=== PATIENT | female | born 1980 | race Caucasian/White ===

== ENCOUNTER 2020-03-09 06:53 | Emergency (ER) | payer SELFPAY ==
[2020-03-09 07:00] VITALS: BP 162/82; PULSE 94; RESP 18; TEMP 36.3; O2SAT 99
--- NOTE | 2020-03-09 07:17 | ED.DENTAL ---
HPI - Dental/Oral General Chief complaint: Dental/Oral Stated complaint: left side face is swollen, tooth problem Time Seen by Provider: 03/09/20 07:02 Source: patient Mode of arrival: Ambulatory Limitations: no limitations History of Present Illness HPI Narrative: The patient developed left facial pain and swelling last night. She has a history of multiple caries. She has had multiple extractions, she has crowns. She developed pain and swelling around tooth 19 which has a crown. She has facial swelling with severe pain. She has no difficulty swelling, or difficulty with jaw motion. She has no chest pain, or dyspnea. She denies fever or chills. Related Data Home Medications Medication Instructions Recorded Confirmed [TYLENOL] PRN #0 03/10/11 bupropion HCl [Wellbutrin SR] 150 mg PO BID #0 03/10/11 escitalopram oxalate [Lexapro] 20 mg PO Q DAY #0 03/10/11 Previous Rx's Medication Instructions Recorded clindamycin HCl [Cleocin HCl] 300 mg PO Q8H 10 Days #30 cap 03/09/20 ondansetron 4 mg PO Q4H PRN #10 tab 03/09/20 tramadol 50 mg PO Q6-8H PRN #14 tab 03/09/20 Allergies Allergy/AdvReac Type Severity Reaction Status Date / Time Sulfa (Sulfonamide Allergy Unknown Rash Verified 03/09/20 07:25 Antibiotics) Review of Systems Constitutional Constitutional: Denies chills and Denies fever(s) Eyes Comments: No complaints ENT Comments: Facial swelling. Dental pain. See HPI. Cardiovascular Cardiovascular: Denies chest pain and Denies dyspnea Respiratory Respiratory: Denies dyspnea Patient History Social History Smoking Status: Current every day smoker Exam Initial Vital Signs Initial Vital Signs: Vital Signs Temperature 97.4 F L 03/09/20 07:00 Pulse Rate 94 H 03/09/20 07:00 Respiratory Rate 18 03/09/20 07:00 Blood Pressure 162/82 H 03/09/20 07:00 Pulse Oximetry 99 03/09/20 07:00 Const General: cooperative and well developed Nutritional Appearance: well nourished [facility] Head: other (Swelling to the left mandible with tenderness. No erythema.) Teeth and gingiva: other (Abscess adjacent to tooth 19. With induration and tenderness) Neck Neck: No lymphadenopathy Resp Effort & Inspection: normal respiratory effort and able to speak in complete sentences Auscultation: clear to auscultation bilaterally, no rales, no rhonchi and no wheezes Cardio Rate: regular rate Rhythm: regular rhythm Heart Sounds: no click, no gallops, no murmurs and no rubs Pulses: normal peripheral pulses Course Course Course Narrative: The patient has received IV Toradol, Decadron and clindamycin. She required Zofran for nausea. The facial swelling and pain is improved prior to departure. She is advised follow-up with a dentist, consider seen a local oral surgeon if symptoms escalate. Orders Ordered: Discontinued Medications Dexamethasone 20 mg/ Sodium (Chloride) 52 mls @ 208 mls/hr IV NOW ONE Stop: 03/09/20 07:16 Last Infusion: 03/09/20 08:20 Dose: 0 mls/hr Documented by: Admin: 03/09/20 07:45 Dose: 208 mls/hr Documented by: ROSHNI Clindamycin Phosphate (Cleocin) 900 mg in 50 mls @ 50 mls/hr IV NOW ONE Stop: 03/09/20 08:15 Last Infusion: 03/09/20 08:30 Dose: 0 mls/hr Documented by: Admin: 03/09/20 07:51 Dose: 50 mls/hr Documented by: ROSHNI Ketorolac Tromethamine (Toradol) 30 mg IV NOW ONE Stop: 03/09/20 07:16 Last Admin: 03/09/20 07:50 Dose: 30 mg Documented by: ROSHNI Ondansetron HCl (Zofran) 4 mg IV NOW ONE Stop: 03/09/20 08:08 Last Admin: 03/09/20 08:10 Dose: 4 mg Documented by: ROSHNI Vital Signs Vital signs: Vital Signs - 8 hr 03/09/20 07:00 Temperature 97.4 F L Pulse Rate 94 H Respiratory Rate 18 Blood Pressure 162/82 H Pulse Oximetry 99 Discharge Plan Departure Patient Disposition: Home Clinical Impression: Dental abscess Instructions: Tooth Abscess Activity Restrictions/Additional Instructions: Clindamycin 300 mg 3 times daily for 10 days. Advil 3 tablets every 6 hours as needed for pain, tramadol every 6 hours as needed for additional pain control. Zofran every 4 hours as needed for nausea. Follow-up with your dentist in about 2 weeks for repeat evaluation. If the swelling and pain increased return to the ER, or contact Dr. De Leon, he is an oral surgeon here in [place]. I will give you his contact information. Also, I suggest you stop smoking. Tobacco use significantly contributes to oral disease. Prescriptions: New clindamycin HCl [Cleocin HCl] 300 mg capsule 300 mg PO Q8H 10 Days Qty: 30 RF: 0 tramadol 50 mg tablet 50 mg PO Q6-8H PRN (Reason: pain) Qty: 14 RF: 0 ondansetron 4 mg tablet,disintegrating 4 mg PO Q4H PRN (Reason: nausea and vomiting) Qty: 10 RF: 0 No Action escitalopram oxalate [Lexapro] 20 MG tablet 20 mg PO Q DAY Qty: 0 RF: 0 [TYLENOL] PRN Qty: 0 RF: 0 bupropion HCl [Wellbutrin SR] 150 MG tablet extended release 12 hr 150 mg PO BID Qty: 0 RF: 0 Referrals: Carlos De Leon, TAMMY [Physician] -
[2020-03-09] MEDS: dexAMETHasone 20 MG in SODIUM CHLORIDE 0.9% 50 ML 208 ML IV (07:45)
[2020-03-09] MEDS: KETOROLAC 60 MG/2 ML VIAL 30 MG IV (07:50)
[2020-03-09] MEDS: CLINDAMYCIN 900 MG/50 ML PIGGYBACK 50 MG IV (07:51)
[2020-03-09] MEDS: ONDANSETRON 4 MG/2 ML INJ IV (08:10)
[2020-03-09 10:47] VITALS: BP 139/76; PULSE 84; RESP 16; O2SAT 99
== END 2020-03-09 10:48 | disposition home or self-care (01) ==
PROVIDERS: Emergency Provider Emergency Medicine
DX: K04.7 Periapical abscess without sinus (principal)
CPT/HCPCS: 96365; 96368; 96375; 99284; J1100; J1885; J2405